=== PATIENT | male | born 1960 | race Caucasian/White ===

== ENCOUNTER 2018-02-24 20:09 | Emergency (ER) | payer OTHER, MEDICARE ==
[~2018-02-24 20:09] MED LIST: EPINEPHRINE INJ 1 MG/10 ML DISP.SYRIN ONE; SODIUM BICARBONATE 8.4% INJ 50 MEQ/50 ML DISP.SYRIN ONE
[2018-02-24] MEDS ORDERED: DEXTROSE 5%-WATER 500 ML with AMIODARONE HCL 900 MG IV PRN ×2 (20:26)
[2018-02-24] MEDS ORDERED: AMPICILLIN SOD/SULBACTAM 3 GM VIAL IV ONE (20:28)
--- NOTE | 2018-02-24 20:32 | ER Document Report ---
ED General - General Chief Complaint: Cardiac Arrest Stated Complaint: CARDIAC ARREST Time Seen by Provider: 02/24/18 20:26 Cannot obtain history due to: Intubated, Unstable vital signs Notes: Patient is a 57-year-old male who presents by EMS in cardiac arrest. Patient was apparently found lying on the ground, had last been seen 2 hours previously. No additional history is able to be obtained - Related Data Allergies/Adverse Reactions: Unable to Assess Allergy (Unverified 02/24/18 20:49) Past Medical History - General Information source: Emergency Med Personnel Cannot obtain history due to: Intubated, Unstable vital signs - Social History Smoking Status: Unknown if Ever Smoked Lives with: Alone Family History: Reviewed & Not Pertinent Review of Systems - Review of Systems -: Yes ROS unobtainable due to patient's medical condition Physical Exam - Vital signs Vitals: BP 71/42 L 02/24/18 20:09 Interpretation: Hypotensive, Hypoxic Notes: PHYSICAL EXAMINATION: GENERAL: GCS 3 T, critically ill in appearance HEAD: Atraumatic, normocephalic. EYES: Pupils fixed and dilated, negative corneal reflex ENT: nares patent, oropharynx clear without exudates. Dry mucous membranes. NECK: supple without lymphadenopathy LUNGS: Breath sounds clear to auscultation bilaterally and equal with bagging. HEART: Regular rate and rhythm without murmurs ABDOMEN: Soft, moderately distended abdomen EXTREMITIES: no pitting or edema. NEUROLOGICAL: No response to noxious stimuli in any extremity. Negative cough, negative gag, negative corneal reflex, negative pupillary response. PSYCH: Unable to assess SKIN: Cool, pale Course - Re-evaluation Re-evalutation: 02/24/18 20:29 Documentation is delayed as I been at the patient's bedside continuously since he arrived to the emergency department. In summary this patient initial PEA arrest, unknown downtime, have a 61-52-ekdhea code time prior to regain of spontaneous circulation. Patient did have a period where he converted from PEA to V. fib and after 3 defibrillations did convert to a sinus bradycardia. The patient arrived to the emergency department with an initial clinical exam worrisome for brain . GCS 3 T. No response to noxious stimuli in extremity. Pupils fixed and dilated, no corneal reflex, no cough, no gag. The patient did again have loss of pulses approximately 10 minutes into being into the emergency department. This was confirmed on bedside echocardiogram showing cardiac standstill. 3 rounds of chest compressions with 2 additional milligrams of epinephrine were administered. This did result in return of spontaneous circulation with both a pulse and on echocardiogram. At this point the supraglottic Diony airway was removed and a ET tube was placed on first pass attempt using glide scope. Patient did have copious amounts of vomitus in his mouth and airway. Patient was noted to be moderately hypoxic with the Diony airway in place although this has improved somewhat after placing the endotracheal tube and starting with a PEEP of 10, FiO2 100% current SPO2 is 94% with the settings. Current heart rate is 82, blood pressure does remain quite soft into the 80s systolic. Patient was initially on norepinephrine infusion prior to hospital arrival which was discontinued due to normalization of his blood pressures. Current blood pressure is 86 on 65 with a map of 73. Concern for likely aspiration given the amount of vomitus in the airway as well as hypoxia despite direct ventilation. The patient will be covered with Unasyn to cover for possible aspiration pneumonia. He is also noted to be hypothermic, initial core temperature of 94 F. Due to the patient having ventricular fibrillation in the field and having been given an amiodarone bolus of 300 mg and amiodarone infusion was also initiated at 1 mg/min. The patient will likely require transition to vasopressor agents and a central line will therefore be placed. Will continue to at the patient's bedside effectively continuously. 02/24/18 20:57 I continue to be at the patient's bedside for the past 30 minutes. Unfortunately the patient's hemodynamic status continued to deteriorate and he did require initiation of norepinephrine through a peripheral line well a right internal jugular central line was placed. Initial chest x-ray is noted to have the ET tube 6 cm above the conrad although the ET tube is a 23 cm the lips. Will advance 3 cm and recheck. Post central line chest x-ray confirms placement , in right atria. After central line placement patient's blood pressure was noted to improve and the norepinephrine is being down titrated. Patient's pulse oximetry also significantly improved and I have weaned FiO2 from 100-80%. Will continue to down titrate. 02/24/18 21:10 Patient's blood sugars also noted to be slightly low at 70. 2 amps of dextrose will be administered. Fluid resuscitation ongoing. Rewarming ongoing. Patient is beginning to take some agonal respirations over the ventilator. Will initiate transfer to [facility] given markedly elevated troponin. 02/24/18 21:15 Patient is beginning to swallow, gag on ET tube. Propofol will be initiated for sedation. 02/24/18 21:30 I have discussed this case with Dr. Rasmussen from [facility] in the MICU who has accepted the patient. 02/24/18 22:01 Patient's blood pressure has again started to deteriorate and her epinephrine has been up titrated back to 12 to maintain a map above 65. Patient is receiving warm fluids although core temperature does remain depressed at 93.2 despite warming with a bear hugger. Patient was able to wean FiO2 to 60%, current saturation on the setting is 93. I have increased respiratory rate from 16-18 to help blow off some of the hypercapnia present. Will recheck an ABG shortly. CT of the head and cervical spine are noted to be normal. On repeat neuro exam patient remains without any response to noxious stimuli, sluggish reactive pupils, gag present. Blinking spontaneously. 02/24/18 2250 Transport has arrived, patient continues to overall clinically improved. Appropriate and stable for transport - Vital Signs Vital signs: Temp Pulse Resp BP Pulse Ox 93.6 F L 84 21 H 105/63 99 02/24/18 22:35 02/24/18 20:15 02/24/18 22:35 02/24/18 22:35 02/24/18 22:40 - Laboratory Result Diagrams: 02/24/18 20:15 02/24/18 20:15 Laboratory results interpreted by me: 02/24/18 02/24/18 02/24/18 20:15 20:15 20:15 WBC 16.8 H MCHC 31.9 L Band Neutrophils % 1 L Monocytes % (Manual) 16 H Abs Neuts (Manual) 10.8 H Abs Monocytes (Manual) 2.7 H Carbonic Acid ABG pH ABG pCO2 ABG pO2 ABG HCO3 ABG Total CO2 ABG O2 Saturation Sodium 154.4 H Carbon Dioxide 20 L Anion Gap 30 H BUN 25 H Creatinine 2.38 H Est GFR ( Amer) 31 L Est GFR (Non-Af Amer) 25 L Glucose 70 L Lactic Acid AST 319 H ALT 309 H Creatine Kinase 223 H CK-MB (CK-2) 8.61 H NT-Pro-B Natriuret Pep 6860 H Urine Protein Urine Glucose (UA) Urine Blood 02/24/18 02/24/18 02/24/18 20:15 20:15 20:35 WBC MCHC Band Neutrophils % Monocytes % (Manual) Abs Neuts (Manual) Abs Monocytes (Manual) Carbonic Acid 4.00 H ABG pH 6.74 L* ABG pCO2 132.9 H* ABG pO2 ABG HCO3 17.8 L ABG Total CO2 21.8 L ABG O2 Saturation 81.3 L Sodium Carbon Dioxide Anion Gap BUN Creatinine Est GFR ( Amer) Est GFR (Non-Af Amer) Glucose Lactic Acid 18.5 H AST ALT Creatine Kinase CK-MB (CK-2) NT-Pro-B Natriuret Pep Urine Protein 30 H Urine Glucose (UA) 150 H Urine Blood LARGE H 02/24/18 22:00 WBC MCHC Band Neutrophils % Monocytes % (Manual) Abs Neuts (Manual) Abs Monocytes (Manual) Carbonic Acid 2.22 H ABG pH 6.97 L* ABG pCO2 73.7 H* ABG pO2 74.8 L ABG HCO3 16.7 L ABG Total CO2 19.0 L ABG O2 Saturation 84.7 L Sodium Carbon Dioxide Anion Gap BUN Creatinine Est GFR ( Amer) Est GFR (Non-Af Amer) Glucose Lactic Acid AST ALT Creatine Kinase CK-MB (CK-2) NT-Pro-B Natriuret Pep Urine Protein Urine Glucose (UA) Urine Blood - Diagnostic Test Radiology reviewed: Image reviewed, Reports reviewed Radiology results interpreted by me: 02/25/18 02:51 Chest x-ray 1: ET tube high, several centimeters above conrad Chest x-ray 2: Right IJ in appropriate position. ET tube remains high. CT head: No acute intracranial bleed or mass - EKG Interpretation by Me Additional EKG results interpreted by me: 02/25/18 02:55 Sinus rhythm, rate 73. No ST elevations or depressions. QTC 492. Procedures - Central Line Right Internal jugular Consent obtained: No - Emergent Central line pre-insertion: Sterile PPE donned, Chloraprep applied, Sterile drapes applied Central line lumen type: Triple Ultrasound guided: Yes CM at insertion site: 28 Line secured with sutures: Yes Central line post-insertion: Blood return from lumens, Biopatch applied, Sutured , Sterile dressing applied, Position confirmed w/ CXR Number of attempts: 1 Complications: No - Intubation Orotracheal Airway evaluation: Normal anatomy Mallampati Classification: Class 2 Medications: Other - None, patient did not require Intubation method: Orotracheal Equipment used: Glidescope ETT size: 8.0 ETT secured at: Lips ETT secured at (cm): 23 Breath Sounds after Intubation: Equal End tidal CO2 confirmed: Yes Ventilator settings: SIMV Tidal volume: 450 FiO2: 100 Respirations: 18 PEEP: 10 Post Intubation Xray: Yes Intubation Complications: No complications Critical Care Note - Critical Care Note Total time excluding time spent on procedures (mins): 85 Comments: Critical care time spent obtaining history from patient or surrogate, discussions with consultants, development of treatment plan with patient or surrogate, evaluation of patient's response to treatment, examination of patient , ordering and performing treatments and interventions, ordering and review of laboratory studies, re-evaluation of patient's condition, ordering and review of radiographic studies and review of old charts Discharge - Discharge Clinical Impression: Cardiac arrest, Cardiogenic shock, Respiratory acidosis, Lactic acidosis Hypothermia Qualifiers: Encounter type: initial encounter Qualified Code(s): T68.XXXA - Hypothermia, initial encounter Acute renal failure Qualifiers: Acute renal failure type: unspecified Qualified Code(s): N17.9 - Acute kidney failure, unspecified Condition: Critical Disposition: [facility] Referrals: HENRY OGLESBY MD [Primary Care Provider] - Follow up as needed
[2018-02-24 20:34] LABS: HEMATOCRIT 48.5 % (37.9-51.0); HEMOGLOBIN 15.4 g/dL (13.5-17.0); MEAN CORPUSCULAR HEMOGLOBIN 30.2 pg (27.0-33.4); MEAN CORPUSCULAR HGB CONC 31.9 g/dL (32.0-36.0); MEAN CORPUSCULAR VOLUME 95 fl (80-97); PLATELET COUNT 303 10^3/uL (150-450); RED BLOOD COUNT 5.12 10^6/uL (4.35-5.55); RED CELL DISTRIBUTION WIDTH 13.6 % (11.5-14.0); WHITE BLOOD COUNT 16.8 10^3/uL (4.0-10.5)
[2018-02-24] MEDS ORDERED: DEXTROSE 5%-WATER 250 ML with NOREPINEPHRINE BITARTRATE 4 MG IV PRN ×2 (20:38)
--- NOTE | 2018-02-24 20:45 | RADIOLOGY REPORT (SQ) ---
EXAM DESCRIPTION: CHEST SINGLE VIEW COMPLETED DATE/TIME: 02/24/2018 8:34 pm REASON FOR STUDY: post intubation, ?aspiration COMPARISON: None. EXAM PARAMETERS: NUMBER OF VIEWS: One view. TECHNIQUE: Single frontal radiographic view of the chest acquired. RADIATION DOSE: NA LIMITATIONS: None. FINDINGS: LUNGS AND PLEURA: Mild interstitial prominence. Small areas of basilar medial airspace op acities. No pneumothorax or significant pleural effusion. . MEDIASTINUM AND HILAR STRUCTURES: No masses. Contour normal. HEART AND VASCULAR STRUCTURES: Heart normal in size. Normal vasculature. BONES: No acute findings. HARDWARE: The endotracheal tube tip overlies the mid trachea approximately 6.5 cm above the level of the conrad. Enteric catheter is present with tip overlying the body of the stomach. OTHER: No other significant finding. IMPRESSION: The endotracheal tube tip overlies the mid trachea approximately 6.5 cm above the level of the conrad. Enteric catheter is present with tip overlying the body of the stomach. Mild interst itial prominence. Small areas of basilar medial airspace opacities. No pneumothorax or significant pleural effusion. TECHNICAL DOCUMENTATION: JOB ID: [id number] [id number] 2010 [employer]- All Rights Reserved Reading location - IP/workstation name: [email or web address]
[2018-02-24 20:50] LABS: ALANINE AMINOTRANSFERASE 309 U/L (21-72); ALBUMIN 4.1 g/dL (3.5-5.0); ALKALINE PHOSPHATASE 65 U/L (38-126); ASPARTATE AMINO TRANSFERASE 319 U/L (17-59); BILIRUBIN,DIRECT 0.4 mg/dL (0.0-0.4); BILIRUBIN,TOTAL 0.5 mg/dL (0.2-1.3); BLOOD UREA NITROGEN 25 mg/dL (7-20); CALCIUM 9.2 mg/dL (8.4-10.2); CREATINE KINASE 223 U/L (55-170); GLUCOSE 70 mg/dL (75-110); POTASSIUM 4.5 mmol/L (3.6-5.0); TOTAL PROTEIN 6.9 g/dL (6.3-8.2)
[2018-02-24 20:51] LABS: ABSOLUTE LYMPHOCYTES# (MANUAL) 3.4 10^3/uL (0.5-4.7); ABSOLUTE MONOCYTES # (MANUAL) 2.7 10^3/uL (0.1-1.4); ABSOLUTE NEUTROPHILS# (MANUAL) 10.8 10^3/uL (1.7-8.2); BAND NEUTROPHILS % (MANUAL) 1 % (3-5); BASOPHILS % (MANUAL) 0 % (0-2); EOSINOPHILS % (MANUAL) 0 % (0-6); LYMPHOCYTES % (MANUAL) 20 % (13-45); MONOCYTES % (MANUAL) 16 % (3-13); SEGMENTED NEUTROPHILS % (MAN) 63 % (42-78); TOTAL CELLS COUNTED 100
[2018-02-24 20:52] LABS: PLATELET COMMENT ADEQUATE; RBC MORPHOLOGY COMMENT NORMO-CYTIC/CHROMIC
[2018-02-24 20:55] LABS: CARBON DIOXIDE 20 mmol/L (22-30); CHLORIDE 104 mmol/L (98-107); SODIUM 154.4 mmol/L (137-145)
[2018-02-24 20:57] LABS: ALCOHOL < 10 mg/dL (NONE DETECTED); ANION GAP 30 (5-19)
[2018-02-24 21:00] LABS: CREATINE KINASE MB 8.61 ng/mL (<4.55)
[2018-02-24 21:04] LABS: ARTERIAL BLOOD HCO3 17.8 mmol/L (20-24); ARTERIAL BLOOD O2 SATURATION 81.3 % (94-98); ARTERIAL BLOOD PO2 87.8 mmHg (80-100); ARTERIAL BLOOD TOTAL CO2 21.8 mmol/L (23-27)
[2018-02-24 21:07] LABS: ARTERIAL BLOOD FIO2 100%; ARTERIAL BLOOD PCO2 132.9 mmHg (35-45); ARTERIAL BLOOD PH 6.74 (7.35-7.45)
[2018-02-24 21:07] LABS: TROPONIN I 0.76 ng/mL
[2018-02-24] MEDS ORDERED: RINGERS SOLUTION,LACTATED 1,000 ML IV ONE (21:07)
[2018-02-24] MEDS ORDERED: DEXTROSE 50%-WATER 25 GM/50 ML DISP.SYRIN IV ONE (21:07)
[2018-02-24 21:14] LABS: APPEARANCE,URINE SLIGHTLY-CLOUDY; BILIRUBIN,URINE NEGATIVE (NEGATIVE); COLOR,URINE YELLOW; GLUCOSE, URINE 150 mg/dL (NEGATIVE); KETONES,URINE NEGATIVE (NEGATIVE); LEUKOCYTE ESTERASE,URINE NEGATIVE (NEGATIVE); NITRITE,URINE NEGATIVE (NEGATIVE); PROTEIN,URINE 30 mg/dL (NEGATIVE); URINE SPECIFIC GRAVITY 1.018; UROBILINOGEN,URINE NEGATIVE mg/dL (<2.0)
[2018-02-24] MEDS ORDERED: PROPOFOL 1,000 MG/100 ML INFUS..BTL IV PRN (21:15)
[2018-02-24] MEDS ORDERED: PROPOFOL INJ 200 MG/20 ML VIAL IV ONE (21:15)
--- NOTE | 2018-02-24 21:16 | RADIOLOGY REPORT (SQ) ---
EXAM DESCRIPTION: XR CHEST 1 VIEW COMPLETED DATE/TME: 02/24/2018 00:00 CLINICAL HISTORY: 89 years, Male, CENTRAL LINE PLACEMENT COMPARISON: Prior chest x-ray from earlier on today's date NUMBER OF VIEWS: 1 TECHNIQUE: Frontal view the chest LIMITATIONS: None. FINDINGS: Stable cardiomegaly. Overlying artifact. Endotracheal and enteric tubes remain in place. Central venous catheter with the tip likely in the right atrium. No pneumothorax. Lungs are clear IMPRESSION: Central venous catheter with the tip likely in the right atrium. Other findings are stable 2010 [employer]- All Rights Reserved
[2018-02-24 21:31] LABS: URINE AMPHETAMINES SCREEN NEGATIVE; URINE BARBITURATES SCREEN NEGATIVE; URINE BENZODIAZEPINES SCREEN UNCONFIRMED POSITIVE; URINE COCAINE SCREEN UNCONFIRMED POSITIVE; URINE MARIJUANA (THC) SCREEN NEGATIVE; URINE METHADONE SCREEN NEGATIVE; URINE PHENCYCLIDINE SCREEN NEGATIVE
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
[2018-02-24 22:39] LABS: ARTERIAL BLOOD BASE EXCESS -16.2 mmol/L; ARTERIAL BLOOD H2CO3 2.22 mmol/L (1.05-1.35); ARTERIAL BLOOD HCO3 16.7 mmol/L (20-24); ARTERIAL BLOOD O2 SATURATION 84.7 % (94-98); ARTERIAL BLOOD PO2 74.8 mmHg (80-100)
[2018-02-24 22:47] LABS: ARTERIAL BLOOD FIO2 60
[2018-02-24 22:50] LABS: ARTERIAL BLOOD PCO2 73.7 mmHg (35-45); ARTERIAL BLOOD PH 6.97 (7.35-7.45)
[2018-02-24 23:50] VITALS: BP 105/63
--- NOTE | 2018-02-25 10:23 | EKG REPORT ---
SEVERITY:- ABNORMAL ECG - SINUS RHYTHM INCOMPLETE LEFT BUNDLE BRANCH BLOCK : Confirmed by: Olya Lundberg MD 25-Feb-2018 10:22:40
== END 2018-02-24 23:00 | disposition short-term general hospital (02) ==
LOC: ER 20:09
PROC: 0BH17EZ Insertion of Endotracheal Airway into Trachea, Via Natural or Artificial Opening (ICD-10-PCS; principal; 2018-02-24)
PROC: 05HM33Z Insertion of Infusion Device into Right Internal Jugular Vein, Percutaneous Approach (ICD-10-PCS; 2018-02-24)
DX: R57.0 Cardiogenic shock (principal); E87.2 Acidosis; T68.XXXA Hypothermia, initial encounter; N17.9 Acute kidney failure, unspecified
CPT/HCPCS: 31500; 36556; 93005; 99291; 99292; 92950; 51702; 96375; 96365; 96366; 96368; 36415; 82553; 80307 ×2; 82803; 82550; 83605; 85025; 80053; 81001; 84484; 83880; 71045; 70450; 72125; 94660; 93010; J3490 ×3; J0171; J0295; J2704; J7060 ×2; J7120; J0282